=== PATIENT | male | born 1990 | race Caucasian/White ===

== ENCOUNTER → 2018-10-09 16:21 | Outpatient (CLI) | payer OTHER, SELFPAY ==
--- NOTE | 2018-10-09 16:30 | US_ITS ---
HISTORY:SMALLER THAN A PEA SIZE LUMP ON RIGHT TESTICLE. X 2 WEEKS SMALLER THAN A PEA SIZE LUMP ON RIGHT TESTICLE. X 2 WEEKS EXAMINATION: US Scrotum (Contents) TECHNIQUE: Realtime ultrasound of the testicles was performed with grayscale, Color Doppler and spectral Doppler analysis. COMPARISON: None FINDINGS: TESTES: RIGHT TESTIS SIZE: 4.7 x 2.7 x 1.9 cm. LEFT TESTIS SIZE: 4.2 x 2.7 x 1.8 cm. Normal in size and echotexture, without focal lesion. There is a focal anechoic areas seen peripheral to the right testicle measures 0.3 x 0.3 x 0.2 cm. 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 EPIDIDYMIDES: Normal in size and echotexture, without focal lesion. The right epididymis measures 0.9 x 1.0 x 0.6 cm and the left measures 0.9 x 0.8 x 0.9 cm COLOR DOPPLER: Normal color Doppler flow pattern in the epididymi. 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
== END ==
PROVIDERS: Family Provider Nurse Practitioner; PCP Nurse Practitioner; Referring Provider Nurse Practitioner; Visit Provider Nurse Practitioner
DX: N50.9 Disorder of male genital organs, unspecified (principal)
CPT/HCPCS: 76870; 93976